=== PATIENT | female | born 1965 | race Caucasian/White ===

== ENCOUNTER → 2019-11-30 | Outpatient (CLI) | payer OTHER ==
[~2019-11-30] MED LIST: AMBIEN 5 MG TABL5 M1 PO; BRILINTA90 MG PO; CARISOPRODOL 3350 MG; CELEXA20 MG PO; CHANTIX0.5 MG PO; CLARITIN10 MG PO; CLOPIDOGREL75 MG PO; COLCHICINE0.6 MG PO; DITROPAN XL5 M1; DULCOLAX5 MG PO; ELIQUIS5 MG PO; HYDROXYZINE HCL25 M2 PO; LASIX 40 MG TAB40 M2 PO; LIPITOR80 MG PO; LOPRESSOR25 PO; METHOCARBAMOL500 M2 PO; NEOMYCIN/BACIT3.5 G1; NITROGLYCERIN0.4 MG SUBLING; NORCO 7.5-3251 EACH PO; OXYCODON-ACETA1 EAC1 PO; PLAVIX 75 MG TA75 M1 PO; PROTONIX40 M2 PO; SPIRONOLACTONE25 M1 PO; XARELTO20 MG PO; ZANAFLEX4 MG PO; ZANTAC 150MG T150 M1; ZANTAC 150MG T150 MG PO; ZOLOFT 50 MG TA50 M1 PO; ZOLPIDEM TARTRA10 MG PO
== END ==
LOC: SJCVCIMAG 13:04
DX: I25.10 Atherosclerotic heart disease of native coronary artery without angina pectoris (principal); I25.5 Ischemic cardiomyopathy; I50.9 Heart failure, unspecified; I25.2 Old myocardial infarction; Z79.899 Other long term (current) drug therapy

== ENCOUNTER → 2019-12-04 | Outpatient (CLI) | payer OTHER | LOC: SJCVCIMAG 07:26 | DX: R94.31 Abnormal electrocardiogram [ECG] [EKG] (principal); I25.10 Atherosclerotic heart disease of native coronary artery without angina pectoris; I42.9 Cardiomyopathy, unspecified; I50.9 Heart failure, unspecified; I25.2 Old myocardial infarction; Z87.891 Personal history of nicotine dependence; Z95.810 Presence of automatic (implantable) cardiac defibrillator; Z79.01 Long term (current) use of anticoagulants; Z79.899 Other long term (current) drug therapy; Z91.040 Latex allergy status; Z88.1 Allergy status to other antibiotic agents; Z88.8 Allergy status to other drugs, medicaments and biological substances ==

== ENCOUNTER → 2019-12-07 | Outpatient (CLI) | payer OTHER ==
[~2019-12-07] VITALS: Ht 170.2 cm; Wt 72.6 kg
[2019-12-07 07:22] VITALS: BP 111/63
--- NOTE | 2019-12-07 09:06 | TEE ---
[facility] [place] [address] TRANSESOPHAGEAL ECHOCARDIOGRAM Name: BRENDA BRAY Room #: REG KRISS Keys.Sid.#: [id number] Admission: 12/07/19 Attend Phys: Darron Guthrie MD, Discharge: Date of : 67 Report #: [id number] THIS REPORT FOR: cc: Krista Castano NP, Mandy NP Lundgren, Craig H. MD [facility] ~ APPROVED REPORT Study performed: 12/07/2019 07:53:49 EXAM: Transesophageal Echocardiogram Patient Location: Out-Patient Room #: CVL Status: routine BSA: 1.89 HR: 60 bpm BP: 129/73 mmHg Rhythm: NSR Other Information Study Quality: Good Indications Cardiomyopathy. Apical clot. Hx: ISCM, ICD Echo Enhancing Agent Indication: Rule out Shunt Agent(s) / Amount(s) Used: Optison, Agitated Saline 7 cc Procedure After obtaining informed consent, patient underwent transesophageal echo in the [employer]. Type of Sedation : Conscious Sedation Sedation was administered by Hanh Anthony RN. Sedation was achieved intravenously with: Versed (4) Fentanyl (100) Transesophageal probe was inserted and advanced into esophagus without difficulty by Darron Guthrie MD. The EFRAIN was performed without complications. Throughout the procedure, the blood pressure, pulse oximetry, cardiac rhythm, and rate were monitored. The patient tolerated the procedure without adverse effects. Recovery [facility] [address] [place] [address] TRANSESOPHAGEAL ECHOCARDIOGRAM Name: BRENDA BRAY KEVIN Room #: REG CL MassimoFlakitoSid.#: [id number] Admission: 12/07/19 Attend Phys: Darron Guthrie, Discharge: Date of : 67 Report #: [id number] from conscious sedation was uneventful and vital signs were stable. Left Ventricle The left ventricle is normal size. There is normal left ventricular wall thickness. Left ventricular systolic function is moderately decreased. LVEF is 35-40%. Distal septal and apical akinesis. Laminar, apical thrombus present. Right Ventricle The right ventricle is normal size. The right ventricular systolic function is normal. Atria The left atrium size is normal. No thrombus is visualized in the left atrium or appendage. No shunting noted with contrast bubble injection. The right atrium size is normal. Aortic Valve The aortic valve is normal in structure. No aortic regurgitation is present. There is no aortic valvular stenosis. Mitral Valve The mitral valve is normal in structure. Mild mitral regurgitation. Tricuspid Valve The tricuspid valve is normal in structure. Trace tricuspid regurgitation. Pulmonic Valve The pulmonary valve is normal in structure. Trace pulmonic regurgitation. Great Vessels The aortic root is normal in size. The ascending aorta is normal in size. IVC is normal in size and collapses >50% with inspiration. Pericardium There is no pericardial effusion. Critical Notification Physician Notified <Conclusion> [facility] [place] [address] TRANSESOPHAGEAL ECHOCARDIOGRAM Name: BRENDA BRAY KEVIN Room #: REG M.R.#: [id number] Admission: 12/07/19 Attend Phys: Darron uGthrie, Discharge: Date of : 67 Report #: [id number] Left ventricular systolic function is moderately decreased. LVEF is 35-40%. Distal septal and apical akinesis. Laminar, apical thrombus present. (Images 20, 22) Both atria sizes are normal. No thrombus is visualized in the left atrium or appendage. No shunting noted with contrast bubble injection. The aortic valve is normal in structure. No aortic regurgitation or stenosis The mitral valve is normal in structure. Mild mitral regurgitation. There is no pericardial effusion. <ELECTRONICALLY SIGNED> By: Darron Guthrie MD, [facility] 12/07/19904 4 4 Darron Guthrie MD, FACC /INF
== END | disposition home or self-care (01) ==
LOC: CATH 06:34
DX: I42.9 Cardiomyopathy, unspecified (principal); I08.1 Rheumatic disorders of both mitral and tricuspid valves; I50.20 Unspecified systolic (congestive) heart failure; I25.2 Old myocardial infarction; E78.5 Hyperlipidemia, unspecified; K21.9 Gastro-esophageal reflux disease without esophagitis; Z82.49 Family history of ischemic heart disease and other diseases of the circulatory system; Z98.890 Other specified postprocedural states; Z79.899 Other long term (current) drug therapy

== ENCOUNTER → 2020-01-22 | Outpatient (CLI) | payer OTHER | LOC: SJCVC 14:41 | DX: I25.10 Atherosclerotic heart disease of native coronary artery without angina pectoris (principal); I25.5 Ischemic cardiomyopathy; Z95.810 Presence of automatic (implantable) cardiac defibrillator ==

== ENCOUNTER → 2020-06-10 | Outpatient (CLI) | payer OTHER | LOC: SJCVC 16:26 | PROVIDERS: ATTEND Internal Medicine Cardiovascular Disease | DX: R94.31 Abnormal electrocardiogram [ECG] [EKG] (principal); I25.10 Atherosclerotic heart disease of native coronary artery without angina pectoris; I25.5 Ischemic cardiomyopathy; E78.5 Hyperlipidemia, unspecified; I11.0 Hypertensive heart disease with heart failure; I50.9 Heart failure, unspecified; E78.00 Pure hypercholesterolemia, unspecified; K21.9 Gastro-esophageal reflux disease without esophagitis; Z95.810 Presence of automatic (implantable) cardiac defibrillator; Z79.899 Other long term (current) drug therapy; Z87.891 Personal history of nicotine dependence ==

== ENCOUNTER → 2021-01-21 | Outpatient (CLI) | payer OTHER | LOC: SJCVC 12:57 | PROVIDERS: ATTEND Internal Medicine Cardiovascular Disease | DX: R94.31 Abnormal electrocardiogram [ECG] [EKG] (principal); I25.10 Atherosclerotic heart disease of native coronary artery without angina pectoris; I25.5 Ischemic cardiomyopathy; E78.5 Hyperlipidemia, unspecified; I51.3 Intracardiac thrombosis, not elsewhere classified; M19.90 Unspecified osteoarthritis, unspecified site; I11.0 Hypertensive heart disease with heart failure; I50.9 Heart failure, unspecified; K21.9 Gastro-esophageal reflux disease without esophagitis; Z95.5 Presence of coronary angioplasty implant and graft; E78.00 Pure hypercholesterolemia, unspecified; I25.2 Old myocardial infarction; Z95.810 Presence of automatic (implantable) cardiac defibrillator; Z98.890 Other specified postprocedural states; Z88.8 Allergy status to other drugs, medicaments and biological substances; Z79.899 Other long term (current) drug therapy; Z87.891 Personal history of nicotine dependence; Z82.49 Family history of ischemic heart disease and other diseases of the circulatory system ==

== ENCOUNTER → 2021-07-21 | Outpatient (CLI) | payer OTHER ==
[~2021-07-21] MED LIST changes: +APAP W/CODEINE1 TA2 PO; +COZAAR 25 MG TA25 M1 PO; +FLEXERIL PO; +PREDNISONE 20 M20 MG PO; +ZETIA10 MG PO
== END ==
LOC: SJCVCIMAG 07:38
PROVIDERS: ATTEND Internal Medicine Cardiovascular Disease
DX: I07.1 Rheumatic tricuspid insufficiency (principal); R94.31 Abnormal electrocardiogram [ECG] [EKG]; I25.10 Atherosclerotic heart disease of native coronary artery without angina pectoris; I25.5 Ischemic cardiomyopathy; E78.00 Pure hypercholesterolemia, unspecified; I51.3 Intracardiac thrombosis, not elsewhere classified; Z95.810 Presence of automatic (implantable) cardiac defibrillator; Z88.1 Allergy status to other antibiotic agents; Z91.040 Latex allergy status; Z91.014 Allergy to mammalian meats; Z91.018 Allergy to other foods; Z79.899 Other long term (current) drug therapy; Z87.891 Personal history of nicotine dependence

== ENCOUNTER → 2021-10-14 | Outpatient (CLI) | payer OTHER ==
[~2021-10-14] MED LIST changes: +AMBIEN 10 MG TA10 MG PO; +COREG6.25 MG PO; +DICYCLOMINE HCL20 MG PO; -ZOLOFT 50 MG TA50 M1 PO; +ZOLOFT100 MG PO
== END ==
LOC: SJCVCIMAG 08:22
PROVIDERS: ATTEND Internal Medicine Cardiovascular Disease
DX: I25.10 Atherosclerotic heart disease of native coronary artery without angina pectoris (principal); I25.5 Ischemic cardiomyopathy; E78.00 Pure hypercholesterolemia, unspecified; I51.3 Intracardiac thrombosis, not elsewhere classified; F12.10 Cannabis abuse, uncomplicated; K21.9 Gastro-esophageal reflux disease without esophagitis; I50.9 Heart failure, unspecified; I11.0 Hypertensive heart disease with heart failure; Z95.810 Presence of automatic (implantable) cardiac defibrillator; Z88.1 Allergy status to other antibiotic agents; Z88.8 Allergy status to other drugs, medicaments and biological substances; Z91.040 Latex allergy status; Z91.014 Allergy to mammalian meats; Z79.899 Other long term (current) drug therapy; Z87.891 Personal history of nicotine dependence; Z95.5 Presence of coronary angioplasty implant and graft; Z82.49 Family history of ischemic heart disease and other diseases of the circulatory system

== ENCOUNTER → 2021-10-16 | Outpatient (CLI) | payer OTHER ==
[~2021-10-16] MED LIST changes: -AMBIEN 10 MG TA10 MG PO; -COREG6.25 MG PO; -DICYCLOMINE HCL20 MG PO; +ZOLOFT 50 MG TA50 M1 PO; -ZOLOFT100 MG PO
== END ==
LOC: SJCVCIMAG 08:17
PROVIDERS: ATTEND Internal Medicine Cardiovascular Disease
DX: R10.9 Unspecified abdominal pain (principal); I25.10 Atherosclerotic heart disease of native coronary artery without angina pectoris; I50.9 Heart failure, unspecified; I11.0 Hypertensive heart disease with heart failure; E78.00 Pure hypercholesterolemia, unspecified; Z87.891 Personal history of nicotine dependence; Z95.810 Presence of automatic (implantable) cardiac defibrillator; Z95.5 Presence of coronary angioplasty implant and graft; Z88.1 Allergy status to other antibiotic agents; Z88.8 Allergy status to other drugs, medicaments and biological substances; Z91.040 Latex allergy status; Z91.014 Allergy to mammalian meats; Z79.899 Other long term (current) drug therapy

== ENCOUNTER → 2021-10-20 | Outpatient (CLI) | payer OTHER ==
[~2021-10-20] VITALS: Ht 170.2 cm; Wt 83.9 kg
[~2021-10-20] MED LIST changes: +AMBIEN 10 MG TA10 MG PO; +COREG6.25 MG PO; +DICYCLOMINE HCL20 MG PO; -ZOLOFT 50 MG TA50 M1 PO; +ZOLOFT100 MG PO
[2021-10-20 08:31] VITALS: BP 110/63
[2021-10-20 08:52] LABS: HEMATOCRIT 40.4 % (37.0-47.0); HEMOGLOBIN 13.2 gm/dL (12.0-15.0); MCH 28.6 pg (26.0-34.0); MCHC 32.7 g/dL (28.0-37.0); MCV 87.7 fL (80.0-100.0); RBC 4.61 mil/uL (4.20-5.00); RDW 14.1 % (10.5-14.5)
[2021-10-20 09:04] LABS: CALCIUM 9.8 mg/dL (8.5-10.1); CREATININE 0.7 mg/dL (0.6-1.0); POTASSIUM 4.3 mmol/L (3.5-5.1)
[2021-10-20 09:08] LABS: ALBUMIN 3.5 g/dL (3.4-5.0); TOTAL BILIRUBIN 0.5 mg/dL (0.2-1.0); TOTAL PROTEIN 7.5 g/dL (6.4-8.2)
--- NOTE | 2021-10-20 16:19 | CATHLAB ---
[facility] [place] [address] INVASIVE PROCEDURE REPORT Name: BRENDA BRAY KEVIN Room #: REG KRISS M.Sid.#: [id number] Admission: 10/20/21 Attend Phys: Rober Ghosh MD Discharge: Date of : 67 Report #: [id number] THIS REPORT FOR: cc: Pamela Vieira MD, Ghazal A. MD Park, Jin S. MD ~ APPROVED REPORT Study performed: 10/20/2021 09:42:58 Patient Details Patient Status: Out-Patient Room #: The patient is a 55 year-old female Event Personnel Rober Ghosh Supervisor [employer], Indigo Pope RTR Monitor, Margarita Martínez Jones, Jessica RN hand collator Performed Art Access - R femoral artery* Left Heart Cath w/or w/o Coronaries [id number] [facility] Hemostasis with Manual pressure 42201 Initial Mod Sed Same Phys/QHP Gr5y [id number] 76060 Mod Sed Same Phys/QHP Ea 555257 Indication Dyspnea, Positive stress test, Chest pain Risk Factors Hypercholesterolemia, Coronary Artery DiseaseHypertension Previous Procedures/Diagnoses Previous PCI, Previous CO Procedure Narrative The Right Groin^ was infiltrated with 1% Lidocaine subcutaneous anesthesia. A PINNACLE 4FR Sheath #[id number] sheath was inserted into the RFA^. Coronary angiography was performed using coronary diagnostic catheters. The right coronary system was accessed and visualized with a JR4 catheter. The left coronary system was accessed and visualized with a JL4 catheter. The left ventricle was accessed and visualized with a ANGLED PIGTAIL catheter. Left ventriculogram was performed in 30 degree projection. Hemostasis was obtained with manual pressure following sheath removal without any complications. The patient tolerated the procedure well and there were no [facility] [address] [place] [address] INVASIVE PROCEDURE REPORT Name: BRENDA BRAY KEVIN Room #: REG [facility].#: [id number] Admission: 10/20/21 Attend Phys: Rober Ghosh MD Discharge: Date of : 67 Report #: [id number] complications associated with the procedure. There was no hematoma. Intraoperative Conscious Sedation Sedation start time: 10:05 Case end Time: 10:32 Versed 1 mg Fluoro Time: 2.00 minutes Dose: DAP 3175.70 cGycm2 412 mGy Contrast Type and Amount: Omnipaque 85 ml Coronary Angiography The patient's coronary anatomy is right dominant. Diagnostic Cath Left Main The left main artery is a large-caliber vessel, appears angiographically normal. LAD There is a stent in the mid segment of the LAD, patent with mild restenosis. The distal LAD wraps around the apex. Diagonal 1 This is a small to moderate-sized caliber vessel, with mild diffuse disease proximally. Circumflex This is a moderate-sized caliber vessel, supplies an obtuse marginal artery at the distal segment. OM1 There is a moderate-sized caliber vessel, supplies several branches as it travels the inferolateral wall. There is mild diffuse disease proximally. Right Coronary There is a stent in the mid RCA, patent with mild restenosis, 30%. R PDA This is a small to moderate-sized caliber vessel, patent with no flow-limiting lesions. RPLV This is a small caliber vessel, patent with no flow-limiting lesions. Left Ventriculography The left ventricle is dilated in size with Diminished contractility. The left ventricular ejection fraction is estimated to be 30-35%. Left ventricular wall motion abnormalities are present. Hemodynamics The aortic pressure is 122/70 mmHg with a mean of 91 mmHg. The left ventricular pressure is 130/8 mmHg with a mean of mmHg. The left ventricular end diastolic pressure is 22 mmHg. Conclusion [facility] [address] [place] [address] INVASIVE PROCEDURE REPORT Name: BRENDA BRAY Room #: REG [facility] [id number] Admission: 10/20/21 Attend Phys: Rober Ghosh MD Discharge: Date of : 67 Report #: [id number] 1. There is a patent stent in the mid LAD with mild restenosis. 2. There is a patent stent in the mid RCA with mild restenosis. 3. There is mild disease in a moderate-sized OM vessel. 4. There is moderately severe ischemic cardiomyopathy. 5. Recommend guideline directed medical therapy. <ELECTRONICALLY SIGNED> By: Rober Ghosh MD 10/20/21 161 17 17 Rober Ghosh MD /INF
== END | disposition home or self-care (01) ==
LOC: CATH 08:07
PROVIDERS: ATTEND Internal Medicine Cardiovascular Disease
DX: R07.9 Chest pain, unspecified (principal); R94.39 Abnormal result of other cardiovascular function study; I25.10 Atherosclerotic heart disease of native coronary artery without angina pectoris; T82.855A Stenosis of coronary artery stent, initial encounter; I25.5 Ischemic cardiomyopathy; R06.00 Dyspnea, unspecified; E78.00 Pure hypercholesterolemia, unspecified; I11.0 Hypertensive heart disease with heart failure; I50.9 Heart failure, unspecified; K21.9 Gastro-esophageal reflux disease without esophagitis; I25.2 Old myocardial infarction; E66.9 Obesity, unspecified; Z98.890 Other specified postprocedural states; Z79.899 Other long term (current) drug therapy; Y83.8 Other surgical procedures as the cause of abnormal reaction of the patient, or of later complication, without mention of misadventure at the time of the procedure